=== PATIENT | male | born 1985 | race Caucasian/White ===

== ENCOUNTER 2016-10-26 16:12 | Inpatient (IN) | payer MEDICAID ==
[~2016-10-26] VITALS: Ht 185.4 cm; Wt 62.4 kg
[2016-10-26] MEDS ORDERED: ONDANSETRON HCL/PF - ER 4 MG/2 ML VIAL IV ONE ×2 (16:30→20:00)
[2016-10-26] MEDS ORDERED: ACTIVATED CHARCOAL 25 GM/120 ML TUBE PO ONE (16:30)
[2016-10-26 16:36] LABS: BASOPHILS % (AUTO) 0.4 % (0.0-2.0); EOSINOPHILS % (AUTO) 0.2 % (0.0-6.0); HEMATOCRIT 49 % (39-51); HEMOGLOBIN 15.7 g/dL (13.5-17.5); LYMPHOCYTES # (AUTO) 0.7 /CMM (0.8-4.8); LYMPHOCYTES % (AUTO) 10.4 % (20.0-44.0); MEAN CORPUSCULAR HEMOGLOBIN 30 PG (26.0-33.0); MEAN CORPUSCULAR HGB CONC 32 g/dl (31.0-36.0); MEAN CORPUSCULAR VOLUME 92 fL (80-96); MONOCYTES # (AUTO) 0.6 /CMM (0.1-1.30); MONOCYTES % (AUTO) 8.2 % (2.0-12.0); NEUTROPHILS # (AUTO) 5.5 /CMM (1.8-8.9); NEUTROPHILS % (AUTO) 80.8 % (43.0-81.0); PLATELET COUNT (AUTO) 159 /CMM (150-450); RDW COEFFICIENT OF VARIATION 12.1 (11.5-15.0); RED BLOOD CELL COUNT(AUTO) 5.29 MIL/uL (4.5-6.0); WHITE BLOOD COUNT (AUTO) 6.8 K/uL (4.3-11.0)
[2016-10-26] MEDS ORDERED: ONDANSETRON HCL/PF 4 MG/2 ML VIAL ONE ×2 (16:44→19:36)
[2016-10-26] MEDS ORDERED: ACTIVATED CHARCOAL 25 GM/120 ML TUBE ONE (16:44)
[2016-10-26 16:48] LABS: CARBON DIOXIDE 29 mmol/L (21-32); CHLORIDE 104 mmol/L (98-107); CREATININE 1.1 mg/dL (0.6-1.3); GFR 78 mL/min (>60); POTASSIUM 3.8 mmol/L (3.5-5.1); SODIUM SERUM 141 mmol/L (136-145); UREA NITROGEN, BLOOD 14 mg/dL (7-18)
[2016-10-26 16:57] LABS: ACETAMINOPHEN 0 ug/ml (10-30); ALANINE AMINOTRANSFERASE 15 U/L (12-78); ALBUMIN 4.4 g/dL (3.4-5.0); ALCOHOL, BLOOD < 3 mg/dL (0-0); ALKALINE PHOSPHATASE 56 U/L (46-116); ASPARTATE AMINOTRANSFERASE 12 U/L (15-37); BILIRUBIN,DIRECT 0.2 mg/dL (0.0-0.2); BILIRUBIN,TOTAL 0.7 mg/dL (0.2-1.0); GLUCOSE 125 mg/dL (74-106); SALICYLATE 0.4 mg/dL (2.8-20.0); TOTAL PROTEIN, SERUM 7.5 g/dL (6.4-8.2)
[2016-10-26] MEDS ORDERED: DIAZEPAM 5 MG/ML 2 ML DISP.SYRIN IV ONE ×2 (17:30→20:00)
[2016-10-26] MEDS ORDERED: DIAZEPAM 5 MG/ML 2 ML DISP.SYRIN ONE ×2 (17:53→19:54)
[2016-10-26 19:46] LABS: APPEARANCE,URINE Clear (CLEAR); BILIRUBIN,URINE Negative (NEGATIVE); BLOOD, URINE Trace-intact Ery/uL (NEGATIVE); COLOR,URINE Yellow (YELLOW); KETONES,URINE 80 (NEGATIVE); LEUKOCYTE ESTERASE ,URINE Negative (NEGATIVE); NITRITE, URINE Negative (NEGATIVE); PH,URINE 6.5 (5.0-8.0); PROTEIN,URINE 30 mg/dl (NEGATIVE); UGLUCOSE Negative (NEGATIVE); UROBILINOGEN,URINE 0.2 EU/dL (0.2)
[2016-10-26 19:52] LABS: PHENCYCLIDINE SCREEN,URINE NEGATIVE (NEGATIVE)
[2016-10-26 19:53] LABS: CANNABINOID, URINE POSITIVE (NEGATIVE)
[2016-10-26 20:31] LABS: ADD URINE CULTURE NO; BACTERIA,URINE Few /HPF (None Seen); RBC,URINE 0-2 /HPF (0-2); SQUAMOUS EPITHELIAL CELL,UR Rare /HPF (None Seen); WBC,URINE 0-2 /HPF (0-3)
[2016-10-26 22:05] VITALS: BP 150/83
[2016-10-26] MEDS ORDERED: LORAZEPAM INJ 2 MG/ML VIAL IV PRN ×2 (23:00)
[2016-10-26] MEDS ORDERED: LORAZEPAM 0.5 MG TABLET PO PRN (23:00)
[2016-10-26] MEDS ORDERED: ACETAMINOPHEN LIQUID 160 MG/5 ML BOTTLE PO PRN (23:00)
[2016-10-27] VITALS: BP 155/90
[2016-10-27 04:00] VITALS: BP 159/99
[2016-10-27] MEDS ORDERED: CLONIDINE HCL 0.1 MG TABLET ONE (05:47)
[2016-10-27] MEDS ORDERED: CLONIDINE HCL 0.1 MG TABLET PO PRN (06:00)
[2016-10-27 06:17] LABS: BASOPHILS % (AUTO) 0.3 % (0.0-2.0); HEMATOCRIT 49 % (39-51); HEMOGLOBIN 16.4 g/dL (13.5-17.5); LYMPHOCYTES % (AUTO) 11.5 % (20.0-44.0); MEAN CORPUSCULAR HEMOGLOBIN 31 PG (26.0-33.0); MEAN CORPUSCULAR HGB CONC 34 g/dl (31.0-36.0); MEAN CORPUSCULAR VOLUME 91 fL (80-96); MONOCYTES # (AUTO) 0.6 /CMM (0.1-1.30); MONOCYTES % (AUTO) 7.1 % (2.0-12.0); NEUTROPHILS # (AUTO) 7.3 /CMM (1.8-8.9); NEUTROPHILS % (AUTO) 81.1 % (43.0-81.0); PLATELET COUNT (AUTO) 177 /CMM (150-450); RED BLOOD CELL COUNT(AUTO) 5.37 MIL/uL (4.5-6.0); WHITE BLOOD COUNT (AUTO) 8.9 K/uL (4.3-11.0)
[2016-10-27 06:41] LABS: ALBUMIN 4.5 g/dL (3.4-5.0); CALCIUM, SERUM 8.8 mg/dL (8.5-10.1); POTASSIUM 4.1 mmol/L (3.5-5.1); TOTAL PROTEIN, SERUM 7.8 g/dL (6.4-8.2)
[2016-10-27] MEDS ORDERED: AMPH10TA4 PO (07:57)
[2016-10-27] MEDS ORDERED: ERGO50003 PO (07:57)
[2016-10-27 08:00] VITALS: BP 137/80
[2016-10-27] MEDS ORDERED: ACETAMINOPHEN 650 MG/20.3 ML UDC PO PRN (08:30)
[2016-10-27] MEDS ORDERED: AMLODIPINE BESYLATE 2.5 MG TABLET PO SCH (09:00)
[2016-10-27 09:25] VITALS: BP 137/80
== END 2016-10-27 15:40 | disposition home or self-care (01) | DRG 812 ==
LOC: ER 16:15 → TELE 20:56 → MED 10-27 09:08
PROVIDERS: ADMIT Internal Medicine; ATTEND Internal Medicine
DX: T43.622A Poisoning by amphetamines, intentional self-harm, initial encounter (principal); I10 Essential (primary) hypertension; Y92.009 Unspecified place in unspecified non-institutional (private) residence as the place of occurrence of the external cause; F17.210 Nicotine dependence, cigarettes, uncomplicated; F90.9 Attention-deficit hyperactivity disorder, unspecified type; Y92.9 Unspecified place or not applicable
CPT/HCPCS: 36415; 80048-TC; 80053-TC; 80076-TC; 80305; 81000-TC; 82550-TC; 85025-TC; 87081-TC; A4606; G0480; G6039-TC; J2405; J3360; Z7610

== ENCOUNTER 2017-01-02 21:21 | Emergency (ER) | payer MEDICAID ==
[~2017-01-02] VITALS: Ht 185.4 cm; Wt 74.8 kg
[~2017-01-02 21:21] MED LIST: AMPH10TA4 PO; ERGO50003 PO
[2017-01-02 21:36] VITALS: BP 132/79
== END 2017-01-02 22:39 | disposition home or self-care (01) ==
LOC: ER 21:26
DX: R07.89 Other chest pain (principal); F90.9 Attention-deficit hyperactivity disorder, unspecified type
CPT/HCPCS: 71010-TC; A4606; Z7610

== ENCOUNTER 2017-10-06 22:46 | Inpatient (IN) | payer MEDICAID ==
[~2017-10-06] VITALS: Ht 185.4 cm; Wt 86.8 kg
[~2017-10-06 22:46] MED LIST changes: +ERGO500014 PO; -ERGO50003 PO
--- NOTE | 2017-10-06 22:52 | NUR ---
PT C/O PAIN WHEN BREATHING ON RIGHT SIDE X 2 WEEKS NO SOB
[2017-10-06] MEDS ORDERED: KETOROLAC TROMETHAMINE INJ 30 MG/ML VIAL ONE (23:05)
--- NOTE | 2017-10-06 23:09 | NUR ---
EKG IN PROGRESS
--- NOTE | 2017-10-06 23:13 | NUR ---
RAC #20 IV ACCESS BLOOD SAMPLE COLLECTED SENT TO LAB
--- NOTE | 2017-10-06 23:25 | NUR ---
GAVE REPORT TO LUIZA FOR BRYON
[2017-10-06 23:26] LABS: BASOPHILS % (AUTO) 0.3 % (0.0-2.0); EOSINOPHILS % (AUTO) 0.2 % (0.0-6.0); HEMATOCRIT 45 % (39-51); HEMOGLOBIN 15.4 g/dL (13.5-17.5); LYMPHOCYTES # (AUTO) 1.1 /CMM (0.8-4.8); MEAN CORPUSCULAR HGB CONC 34 g/dl (31.0-36.0); MEAN CORPUSCULAR VOLUME 91 fL (80-96); MONOCYTES # (AUTO) 0.6 /CMM (0.1-1.30); MONOCYTES % (AUTO) 7.3 % (2.0-12.0); NEUTROPHILS # (AUTO) 5.9 /CMM (1.8-8.9); NEUTROPHILS % (AUTO) 77.2 % (43.0-81.0); PLATELET COUNT (AUTO) 206 /CMM (150-450); RDW COEFFICIENT OF VARIATION 12.2 (11.5-15.0); RED BLOOD CELL COUNT(AUTO) 4.97 MIL/uL (4.5-6.0); WHITE BLOOD COUNT (AUTO) 7.6 K/uL (4.3-11.0)
--- NOTE | 2017-10-06 23:28 | NUR ---
REPORT RECEIVED FROM ROS CARMONA FOR BRYON.
[2017-10-06] MEDS ORDERED: IV NS 0.9% 500 ML BAG IV ONE (23:30)
[2017-10-06] MEDS ORDERED: KETOROLAC TROMETHAMINE INJ 30 MG/ML VIAL IV ONE (23:30)
[2017-10-06 23:42] LABS: D-DIMER 1.08 mg/L(FEU (0.17-0.50); INR 1.02 (0.87-1.13)
[2017-10-06 23:43] LABS: ALANINE AMINOTRANSFERASE 20 U/L (12-78); ALKALINE PHOSPHATASE 74 U/L (46-116); ASPARTATE AMINOTRANSFERASE 10 U/L (15-37); BILIRUBIN,DIRECT 0.1 mg/dL (0.0-0.2); BILIRUBIN,TOTAL 0.7 mg/dL (0.2-1.0); CALCIUM, SERUM 9.1 mg/dL (8.5-10.1); CARBON DIOXIDE 31 mmol/L (21-32); CHLORIDE 100 mmol/L (98-107); CREATININE 1.2 mg/dL (0.6-1.3); GLUCOSE 171 mg/dL (74-106); POTASSIUM 3.2 mmol/L (3.5-5.1); SODIUM SERUM 138 mmol/L (136-145); TOTAL PROTEIN, SERUM 7.8 g/dL (6.4-8.2); UREA NITROGEN, BLOOD 12 mg/dL (7-18)
[2017-10-06 23:45] LABS: TROPONIN I < 0.017 ng/mL (0.00-0.056)
--- NOTE | 2017-10-07 00:01 | NUR ---
PT TO CT VIA WC. VSS.
[2017-10-07] MEDS ORDERED: IV NS 0.9% 250 ML IV ONE (00:15)
[2017-10-07] MEDS ORDERED: IOHEXOL-350 100 ML VIAL IV ONE (00:15)
[2017-10-07] MEDS ORDERED: CT SWABBABLE VALVE TRANS SET 1 EA INFUS.SET MC ONE (00:15)
--- NOTE | 2017-10-07 00:36 | NUR ---
PT BACK FROM CT.
--- NOTE | 2017-10-07 01:40 | NUR ---
MD AT BEDSIDE SPEAKING WITH PATIENT.
[2017-10-07] MEDS ORDERED: ENOXAPARIN SODIUM 80 MG/0.8 ML DISP.SYRIN SQ ONE (01:49)
[2017-10-07] MEDS ORDERED: ENOXAPARIN SODIUM 30 MG/0.3 ML DISP.SYRIN SQ ONE (02:00)
[2017-10-07] MEDS ORDERED: HYDROMORPHONE 1 MG/1 ML DISP.SYRIN IM ONE (03:00)
[2017-10-07] MEDS ORDERED: ONDANSETRON 4 MG TAB.RAPDIS SL ONE (03:00)
--- NOTE | 2017-10-07 03:00 | NUR ---
REPORT RECEIVED FROM LUIZA MUNOZ RN FOR PATIENT TO BE TRANSFERRED TO TELEMETRY FLOOR.
--- NOTE | 2017-10-07 03:01 | NUR ---
PATIENT TBA 312-2.
--- NOTE | 2017-10-07 03:01 | NUR ---
REPORT GIVEN TO ROS SIFUENTES ON 3W FOR BRYON.
--- NOTE | 2017-10-07 03:21 | NUR ---
PT TRANSPORTED TO [facility] 312-2 VIA STRETCHER ON CONTROL CLERK SUBASSEMBLY WITH RN PER ACLS PROTOCOL. VSS.
[2017-10-07] MEDS ORDERED: ACETAMINOPHEN 325 MG TABLET PO PRN (03:30)
[2017-10-07] MEDS ORDERED: HYDROCODONE/APAP 5/325MG 1 EACH TABLET PO PRN (03:30)
--- NOTE | 2017-10-07 03:44 | NUR ---
MILL OPERATOR HELPER OPENING NOTE PATIENT WAS BROUGHT TO THE UNIT ON A GURNEY, ABLE TO AMBULATE TO BED INDEPENDENTLY, PATIENT IS ALERT ORIENTED X4, ABLE TO VERBALIZE NEEDS. IN STABLE CONDITION. RESPIRATIONS EVEN AND UNLABORED,NO APPARENT ACUTE DISTRESS OR DISCOMFORT NOTED, DENIES SOB. ON ROOM AIR TOLERATES WELL. PATIENT COMPLAINS OF RIGHT SIDED CHEST PAIN 2-3/10. TOLERATES PAIN AT THIS LEVEL, REFUSES PAIN MEDICATION AT THIS TIME. INITIAL PHYSICAL ASSESSMENT PERFORMED, SKIN IS INTACT. RIGHT AC IV 20G, SL, PATENT AND INTACT. VITAL SIGNS: BP: 143/85, HR: 74, O2 SAT: 100%, RESP: 20, T: 98.4. ALL THE BELONGINGS ARE CHECKED AND ACCOUNTED FOR. SAFETY MEASURES IN PLACE, BED IN LOW LOCKED POSITION, SIDE RAILS UP X2, CALL LIGHT WITHIN EASY REACH. WILL CARRY OUT ADMISSION ORDERS AND CONTINUE TO MONITOR.
[2017-10-07 04:04] VITALS: BP 143/85
[2017-10-07 04:54] VITALS: BP 143/85
--- NOTE | 2017-10-07 06:34 | NUR ---
CREDIT FRONT OFFICE DEVELOPER CLOSING NOTE PATIENT SLEEPING IN BED, EASILY AROUSED WITH VERBAL STIMULI. ORIENTED X4. ON ROOM AIR, TOLERATING WELL. O2 SAT >93%. IN NO APPARENT DISTRESS OR DISCOMFORT AT THIS TIME. RESPIRATIONS EVEN AND UNLABORED. PATIENT ABLE TO VERBALIZE NEEDS. RIGHT AC IV 20G SL, PATENT AND INTACT. PATIENT ON TELE MONITORING WITH SR AND HR OF 63. PATIENT KEPT CLEAN AND COMFORTABLE, ALL NEEDS ATTENDED. SAFETY MEASURES IN PLACE, BED IN LOW LOCKED POSITION, SIDE RAILS UP X2, CALL LIGHT WITHIN EASY REACH. WILL ENDORSE TO AM NURSE FOR BRYON.
--- NOTE | 2017-10-07 07:40 | NUR ---
WASTE WATER WORKER OPENING NOTE PATIENT IS ALERT AND ORIENTED x4. NO PAIN AT THIS TIME. NO SOB OR DISTRESS. CALL LIGHT WITHIN REACH. SAFETY MEASURES IMPLEMENTED. ABLE TO COMMUNICATE NEEDS. IV INTACT AND PATENT NO REDNESS OR SWELLING NOTED. LABS PENDING AT THIS TIME. TELE MONITOR- SR 69. WILL CONTINUE TO MONITOR THROUGHOUT SHIFT
[2017-10-07 08:00] VITALS: BP 132/74
[2017-10-07 08:15] LABS: BASOPHILS % (AUTO) 0.2 % (0.0-2.0); EOSINOPHILS % (AUTO) 0.3 % (0.0-6.0); HEMATOCRIT 41 % (39-51); HEMOGLOBIN 14.1 g/dL (13.5-17.5); LYMPHOCYTES # (AUTO) 1.2 /CMM (0.8-4.8); LYMPHOCYTES % (AUTO) 21.2 % (20.0-44.0); MEAN CORPUSCULAR HGB CONC 35 g/dl (31.0-36.0); MEAN CORPUSCULAR VOLUME 91 fL (80-96); MONOCYTES # (AUTO) 0.6 /CMM (0.1-1.30); MONOCYTES % (AUTO) 10.9 % (2.0-12.0); NEUTROPHILS # (AUTO) 3.9 /CMM (1.8-8.9); NEUTROPHILS % (AUTO) 67.4 % (43.0-81.0); PLATELET COUNT (AUTO) 180 /CMM (150-450); RDW COEFFICIENT OF VARIATION 12.2 (11.5-15.0); RED BLOOD CELL COUNT(AUTO) 4.45 MIL/uL (4.5-6.0); WHITE BLOOD COUNT (AUTO) 5.8 K/uL (4.3-11.0)
[2017-10-07 08:35] LABS: ALBUMIN 3.2 g/dL (3.4-5.0); BILIRUBIN,TOTAL 0.6 mg/dL (0.2-1.0); CALCIUM, SERUM 8.3 mg/dL (8.5-10.1); CREATININE 1.1 mg/dL (0.6-1.3); POTASSIUM 3.5 mmol/L (3.5-5.1); TOTAL PROTEIN, SERUM 6.5 g/dL (6.4-8.2)
[2017-10-07 08:42] LABS: THYROID STIMULATING HORMONE 4.596 uIU/mL (0.358-3.74)
[2017-10-07] MEDS ORDERED: APIXABAN 5 MG TABLET PO SCH (09:00)
[2017-10-07] MEDS ORDERED: RIVAROXABAN 15 MG TABLET PO SCH (10:00)
[2017-10-07] MEDS ORDERED: Rivaroxaban PO (10:20)
[2017-10-07] MEDS ORDERED: AMLO2.5T3 PO (10:20)
[2017-10-07] MEDS ORDERED: AMLODIPINE BESYLATE 2.5 MG TABLET PO SCH (10:30)
[2017-10-07 10:46] VITALS: BP 132/74
--- NOTE | 2017-10-07 15:54 | NUR ---
RN TRANSPORT NOTE PATIENT SENT HOME IN STABLE CONDITION, ALERT AND ORIENTED X4. NO PAIN, SOB OR DISTRESS NOTED. ALL DUE MEDICATIONS GIVEN ORDERED. ALL NURSING CARE NEEDS ATTENDED TO NEEDED. ALL BELONGINGS WITH PATIENT UPON DISCHARGE. ALL DISCHARGE INSTRUCTIONS GIVEN AT BEDSIDE, ALL INSTRUCTIONS REPEATED BACK BY PATIENT. PRESCRIPTION GIVEN TO PATIENT, MEDICATION EDUCATION GIVEN. LEFT VIA PRIVATE CAR WITH FAMILY MEMBER. IV REMOVED, SKIN INTACT.
[2017-10-08 09:12] LABS: C-REACTIVE PROTEIN, QUANT 15.3 mg/L (0.0-4.9)
== END 2017-10-07 16:00 | disposition home or self-care (01) | DRG 134 ==
LOC: ER 22:47 → TELE 10-07 03:02 → MED 10-07 09:06
PROVIDERS: ADMIT Internal Medicine; ATTEND Internal Medicine
DX: I26.99 Other pulmonary embolism without acute cor pulmonale (principal); I10 Essential (primary) hypertension; Z87.891 Personal history of nicotine dependence; F90.9 Attention-deficit hyperactivity disorder, unspecified type
CPT/HCPCS: 36415; 71045-TC; 80048-TC; 80053-TC; 80076-TC; 83690-TC; 84443-TC; 84484-TC; 85025-TC; 85378-TC; 85730-TC; 86140; 87081-TC; 93307-TC; 93970-TC; A4606; J1650; J1885; J7040; J7050; Q9967; Z7610

== ENCOUNTER 2018-10-29 22:24 | Emergency (ER) | payer SELFPAY ==
[~2018-10-29] VITALS: Ht 185.4 cm; Wt 68.0 kg
[~2018-10-29 22:24] MED LIST changes: +AMLO2.5T4 PO; -AMPH10TA4 PO; -ERGO500014 PO; +Rivaroxaban PO
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
--- NOTE | 2018-10-29 22:45 | NUR ---
PIV 20G INSERTED ON LAC . BLOOD WAS DRAWN. AND HANDED TO THE EGG CRATER.
--- NOTE | 2018-10-29 22:50 | NUR ---
ECG TECH AT THE BED SIDE
[2018-10-29 23:01] LABS: BASOPHILS # (AUTO) 0.1 /CMM (0.0-0.2); EOSINOPHILS % (AUTO) 0.6 % (0.0-6.0); HEMATOCRIT 46 % (39-51); HEMOGLOBIN 15.5 g/dL (13.5-17.5); LYMPHOCYTES # (AUTO) 1.8 /CMM (0.8-4.8); LYMPHOCYTES % (AUTO) 32.3 % (20.0-44.0); MEAN CORPUSCULAR HGB CONC 34 g/dl (31.0-36.0); MEAN CORPUSCULAR VOLUME 92 fL (80-96); MONOCYTES # (AUTO) 0.5 /CMM (0.1-1.30); MONOCYTES % (AUTO) 9.6 % (2.0-12.0); NEUTROPHILS # (AUTO) 3.2 /CMM (1.8-8.9); NEUTROPHILS % (AUTO) 55.5 % (43.0-81.0); PLATELET COUNT (AUTO) 245 /CMM (150-450); RED BLOOD CELL COUNT(AUTO) 5.04 MIL/uL (4.5-6.0); WHITE BLOOD COUNT (AUTO) 5.7 K/uL (4.3-11.0)
[2018-10-29 23:09] LABS: CARBON DIOXIDE 36 mmol/L (21-32); CHLORIDE 105 mmol/L (98-107); CREATININE 1.1 mg/dL (0.6-1.3); GLUCOSE 81 mg/dL (74-106); POTASSIUM 3.5 mmol/L (3.5-5.1); SODIUM SERUM 144 mmol/L (136-145); UREA NITROGEN, BLOOD 11 mg/dL (7-18)
[2018-10-29] MEDS ORDERED: CT SWABBABLE VALVE TRANS SET 1 EA INFUS.SET MC ONE (23:20)
[2018-10-29] MEDS ORDERED: IOHEXOL-350 100 ML VIAL IV ONE (23:20)
[2018-10-29] MEDS ORDERED: IV NS 0.9% 250 ML IV ONE (23:20)
--- NOTE | 2018-10-29 23:25 | NUR ---
PICKED UP FOR CT
--- NOTE | 2018-10-29 23:50 | NUR ---
BACK FROM CT
[2018-10-29 23:54] VITALS: BP 137/82
--- NOTE | 2018-10-30 01:15 | NUR ---
Patient discharged to home in stable condition. Written and verbal after care instructions and prescription given. Patient verbalizes understanding of instruction.
== END 2018-10-30 01:40 | disposition home or self-care (01) ==
LOC: ER 22:24
DX: J40 Bronchitis, not specified as acute or chronic (principal); F90.9 Attention-deficit hyperactivity disorder, unspecified type; Z86.711 Personal history of pulmonary embolism; Z98.890 Other specified postprocedural states; Z79.899 Other long term (current) drug therapy
CPT/HCPCS: 36415; 71045; 71275; 80048; 84484; 85025; 85378; 93005; 99284; J7050; Q9967

== ENCOUNTER 2019-01-15 13:28 | Emergency (ER) | payer SELFPAY ==
[~2019-01-15] VITALS: Ht 185.4 cm; Wt 81.6 kg
--- NOTE | 2019-01-15 14:30 | NUR ---
RIGHT FLANK PAIN X 1 HR ASSOCIATED WITH NAUSEA. PT AAOX4, VSS, RR EVEN & UNLABORED. DENIES CP, SOB, DIZZINESS, WEAKNESS AT THIS TIME. PT SEEN & EVAL'D BY BENITO MAHER & WILL CONT TO MONITOR.
[2019-01-15] MEDS ORDERED: ONDANSETRON HCL/PF 4 MG/2 ML VIAL ONE (14:58)
[2019-01-15 14:59] LABS: BASOPHILS % (AUTO) 0.2 % (0.0-2.0); EOSINOPHILS % (AUTO) 0.5 % (0.0-6.0); HEMATOCRIT 44 % (39-51); HEMOGLOBIN 14.8 g/dL (13.5-17.5); LYMPHOCYTES % (AUTO) 20.3 % (20.0-44.0); MEAN CORPUSCULAR HGB CONC 34 g/dl (31.0-36.0); MEAN CORPUSCULAR VOLUME 91 fL (80-96); MONOCYTES # (AUTO) 0.4 /CMM (0.1-1.30); MONOCYTES % (AUTO) 7.6 % (2.0-12.0); NEUTROPHILS # (AUTO) 3.6 /CMM (1.8-8.9); NEUTROPHILS % (AUTO) 71.4 % (43.0-81.0); PLATELET COUNT (AUTO) 163 /CMM (150-450)
[2019-01-15] MEDS ORDERED: IV NS 0.9% 1,000 ML BAG IV ONE (15:00)
[2019-01-15] MEDS ORDERED: ONDANSETRON HCL/PF 4 MG/2 ML VIAL IVP ONE (15:00)
[2019-01-15 15:07] LABS: CALCIUM, SERUM 8.7 mg/dL (8.5-10.1); CREATININE 1.1 mg/dL (0.6-1.3); POTASSIUM 4.4 mmol/L (3.5-5.1)
--- NOTE | 2019-01-15 15:10 | NUR ---
MEDICATED ORDERED, PT TK WELL. LOOP SEWER AT BS FOR EVAL.
[2019-01-15 15:11] LABS: ALBUMIN 3.8 g/dL (3.4-5.0); BILIRUBIN,DIRECT 0.1 mg/dL (0.0-0.2); BILIRUBIN,TOTAL 0.9 mg/dL (0.2-1.0); TOTAL PROTEIN, SERUM 7.2 g/dL (6.4-8.2)
--- NOTE | 2019-01-15 15:12 | NUR ---
CALLED LINE SERVICE SUPERVISOR DEPT, STATES IN A MEETING WILL CALL BACK
[2019-01-15] MEDS ORDERED: ENOXAPARIN SODIUM 80 MG/0.8 ML DISP.SYRIN SQ SCH (15:30)
[2019-01-15] MEDS ORDERED: ENOXAPARIN SODIUM 80 MG/0.8 ML DISP.SYRIN SQ ONE (15:33)
[2019-01-15 15:59] LABS: APPEARANCE,URINE Cloudy (CLEAR); BILIRUBIN,URINE Negative (NEGATIVE); BLOOD, URINE Large Ery/uL (NEGATIVE); COLOR,URINE Red (YELLOW); KETONES,URINE Negative (NEGATIVE); LEUKOCYTE ESTERASE ,URINE Negative (NEGATIVE); NITRITE, URINE Negative (NEGATIVE); PH,URINE 8.5 (5.0-8.0); PROTEIN,URINE 30 mg/dl (NEGATIVE); UGLUCOSE Negative (NEGATIVE)
[2019-01-15 16:03] LABS: BACTERIA,URINE Few /HPF (None Seen); RBC,URINE TOO NUMEROUS TO COUN /HPF (0-2); SQUAMOUS EPITHELIAL CELL,UR None Seen /HPF (None Seen); WBC,URINE 0-2 /HPF (0-3)
[2019-01-15] MEDS ORDERED: TAMSULOSIN 0.4 MG CAP.SR.24H ONE (16:51)
[2019-01-15] MEDS ORDERED: TAMSULOSIN 0.4 MG CAP.SR.24H PO ONE (17:00)
--- NOTE | 2019-01-15 17:10 | NUR ---
The patient was seen by the case management; the patient was referred to a [facility] or [facility]; the medical case manager-ROS Marin spoke to the patient lengthily about the need to follow up to a [facility] in order for his prescriptions to be filled-since the patient is uninsured
--- NOTE | 2019-01-15 17:11 | NUR ---
The patient will be discharge home, discharge teachings as well as resource for the [facility] were offered to the patient, also prescription-anticoagulants were provided to the patient. The patient was instructed again, to follow-up in [facility] first thing in the morning, in order for his prescription to be filled or for him to be seen by the ER physician. The patient was instructed to follow-up in [facility], since his insurance has already [id number]. The patient verbalized understanding of care.
--- NOTE | 2019-01-15 17:13 | NUR ---
The patient was instructed to follow-up in [place], in order for him to obtain he his primary care physician[place] [facility] [place] was also referred to the [facility], for outpatient urology-nephrolithiasis Case discussed extensively to the patient by his ED provider-BENITO Leonard
[2019-01-15 17:14] VITALS: BP 142/70
== END 2019-01-15 17:15 | disposition home or self-care (01) ==
LOC: ER 13:28
DX: N13.2 Hydronephrosis with renal and ureteral calculous obstruction (principal); I26.99 Other pulmonary embolism without acute cor pulmonale; F90.9 Attention-deficit hyperactivity disorder, unspecified type; Z85.820 Personal history of malignant melanoma of skin; Z98.890 Other specified postprocedural states; Z79.899 Other long term (current) drug therapy; Z79.01 Long term (current) use of anticoagulants
CPT/HCPCS: 36415; 71045; 76770; 80048; 80076; 81001; 85025; 96372; 96374; 99284; J1650; J2405; J7030 ×2; 81000-TC

== ENCOUNTER 2019-06-05 13:45 | Emergency (ER) | payer MEDICAID ==
[~2019-06-05] VITALS: Ht 185.4 cm; Wt 83.5 kg
--- NOTE | 2019-06-05 14:08 | NUR ---
PT BIBS. AAOX4. QMBULATORY. PT C/O GENERALIZED WEAKNESS X 3 DAYS. ALSO, ITCHING ON BOTH HANDS X1 MONTH. RR EVEN AND UNLABORED. NO NEURO DEFICIT. NO ACUTE DISTRESS NOTED. MD AT BEDSIDE.
--- NOTE | 2019-06-05 14:28 | NUR ---
URINE COLLECTED AND SENT TO LAB
--- NOTE | 2019-06-05 14:33 | NUR ---
LEACH RUNNER AT BEDSIDE FOR LAB COLLECTION
[2019-06-05 14:41] LABS: BASOPHILS % (AUTO) 0.4 % (0.0-2.0); EOSINOPHILS % (AUTO) 0.3 % (0.0-6.0); HEMATOCRIT 47 % (39-51); HEMOGLOBIN 15.7 g/dL (13.5-17.5); LYMPHOCYTES % (AUTO) 16.6 % (20.0-44.0); MEAN CORPUSCULAR HGB CONC 34 g/dl (31.0-36.0); MEAN CORPUSCULAR VOLUME 92 fL (80-96); MONOCYTES # (AUTO) 0.4 /CMM (0.1-1.30); MONOCYTES % (AUTO) 6.7 % (2.0-12.0); NEUTROPHILS # (AUTO) 4.4 /CMM (1.8-8.9); PLATELET COUNT (AUTO) 185 /CMM (150-450); RED BLOOD CELL COUNT(AUTO) 5.09 MIL/uL (4.5-6.0); WHITE BLOOD COUNT (AUTO) 5.8 K/uL (4.3-11.0)
[2019-06-05 14:46] LABS: BILIRUBIN,URINE Negative (NEGATIVE); BLOOD, URINE Negative Ery/uL (NEGATIVE); COLOR,URINE Yellow (YELLOW); KETONES,URINE 40 (NEGATIVE); LEUKOCYTE ESTERASE ,URINE Negative (NEGATIVE); NITRITE, URINE Negative (NEGATIVE); PH,URINE 7.5 (5.0-8.0); PROTEIN,URINE Negative (NEGATIVE); UGLUCOSE Negative (NEGATIVE)
[2019-06-05 14:49] LABS: CALCIUM, SERUM 9.1 mg/dL (8.5-10.1); CREATININE 1.1 mg/dL (0.6-1.3); POTASSIUM 3.8 mmol/L (3.5-5.1)
[2019-06-05 14:50] LABS: APPEARANCE,URINE Hazy (CLEAR)
[2019-06-05 14:52] LABS: BACTERIA,URINE None seen /HPF (None Seen); SQUAMOUS EPITHELIAL CELL,UR Few /HPF (None Seen); WBC,URINE 0-2 /HPF (0-3)
[2019-06-05 14:54] LABS: ALBUMIN 4.2 g/dL (3.4-5.0); BILIRUBIN,DIRECT 0.2 mg/dL (0.0-0.2)
--- NOTE | 2019-06-05 15:45 | NUR ---
US AT BEDSIDE
--- NOTE | 2019-06-05 16:30 | NUR ---
Patient is resting comfortably in bed. Easily aroused. VSS.
--- NOTE | 2019-06-05 16:59 | NUR ---
Patient discharged to home in stable condition. Written and verbal after care instructions given. Patient verbalizes understanding of instruction. PT ambulatory with a steady gait.
[2019-06-05 17:01] VITALS: BP 148/89
== END 2019-06-05 17:02 | disposition home or self-care (01) ==
LOC: ER 13:46
DX: I82.403 Acute embolism and thrombosis of unspecified deep veins of lower extremity, bilateral (principal); N48.1 Balanitis; L29.9 Pruritus, unspecified; K62.5 Hemorrhage of anus and rectum; F90.9 Attention-deficit hyperactivity disorder, unspecified type; Z86.711 Personal history of pulmonary embolism; Z85.820 Personal history of malignant melanoma of skin; Z98.890 Other specified postprocedural states; Z79.899 Other long term (current) drug therapy
CPT/HCPCS: 36415; 80048-TC; 80076-TC; 81000-TC; 84443-TC; 85025-TC; 87086-TC; 87491; 87591; 93970-TC

== ENCOUNTER 2019-12-03 19:57 | Emergency (ER) | payer MEDICAID ==
[~2019-12-03] VITALS: Ht 185.4 cm; Wt 78.9 kg
--- NOTE | 2019-12-03 20:39 | NUR ---
BIBS FROM HOME TO ER BED 7. AAOX4. NOT IN RESP DISTRESS, SATTING @ 99% ON RA, BREATHING EVEN AND UNLABORED. AMBULATORY. CAME IN FOR MID LEFT CHEST PAIN X ABOUT A WEEK. INTERMITENT AND PULSATING IN SENSATION. PT REPORT THAT PAIN IS RADIATING TO NECK. RATES PAIN 6/10. PT ALSO C/O L HAND 5TH DIGIT SWELLING AND R HAND 5TH DIGIT NUMBNESS. PT STATES THAT HE HAD HISTORY OF PULMONARY EMBOLISM AND TAKING XARELTO. PT STATES THAT IS FEELS THAT SAME WHEN HE HAB THE P.E. MD WAS MADE AWARE. ORDERS RECEIVED, NOTED AND CARRIED OUT
--- NOTE | 2019-12-03 21:09 | NUR ---
IV LINE OBTAINED ON L AC 18G. BLOOD DRAWN AND GIVEN TO PATIENT RELATIONS MANAGER AT BEDSIDE
[2019-12-03 21:11] LABS: BASOPHILS % (AUTO) 0.3 % (0.0-2.0); EOSINOPHILS % (AUTO) 0.2 % (0.0-6.0); HEMATOCRIT 44 % (39-51); HEMOGLOBIN 14.7 g/dL (13.5-17.5); LYMPHOCYTES # (AUTO) 1.4 /CMM (0.8-4.8); LYMPHOCYTES % (AUTO) 20.9 % (20.0-44.0); MEAN CORPUSCULAR HGB CONC 34 g/dl (31.0-36.0); MEAN CORPUSCULAR VOLUME 91 fL (80-96); MONOCYTES # (AUTO) 0.5 /CMM (0.1-1.30); NEUTROPHILS # (AUTO) 4.8 /CMM (1.8-8.9); NEUTROPHILS % (AUTO) 71.6 % (43.0-81.0); PLATELET COUNT (AUTO) 188 /CMM (150-450); RED BLOOD CELL COUNT(AUTO) 4.81 MIL/uL (4.5-6.0); WHITE BLOOD COUNT (AUTO) 6.8 K/uL (4.3-11.0)
[2019-12-03 21:20] LABS: CALCIUM, SERUM 8.7 mg/dL (8.5-10.1); CARBON DIOXIDE 25 mmol/L (21-32); CHLORIDE 103 mmol/L (98-107); GLUCOSE 101 mg/dL (74-106); POTASSIUM 3.4 mmol/L (3.5-5.1); SODIUM SERUM 139 mmol/L (136-145); UREA NITROGEN, BLOOD 12 mg/dL (7-18)
[2019-12-03 21:32] LABS: ALANINE AMINOTRANSFERASE 20 U/L (12-78); ALBUMIN 4.1 g/dL (3.4-5.0); ALKALINE PHOSPHATASE 58 U/L (46-116); ASPARTATE AMINOTRANSFERASE 12 U/L (15-37); BILIRUBIN,DIRECT 0.2 mg/dL (0.0-0.2); BILIRUBIN,TOTAL 0.7 mg/dL (0.2-1.0); TOTAL PROTEIN, SERUM 7.4 g/dL (6.4-8.2)
[2019-12-03 21:39] LABS: D-DIMER 0.19 mg/L(FEU (0.17-0.50)
[2019-12-03] MEDS ORDERED: IV NS 0.9% 250 ML IV ONE (22:13)
[2019-12-03] MEDS ORDERED: IOHEXOL-350 100 ML VIAL IV ONE (22:13)
--- NOTE | 2019-12-03 22:39 | NUR ---
PT BACK FROM CT
--- NOTE | 2019-12-03 22:50 | NUR ---
US AT BEDSIDE
--- NOTE | 2019-12-03 23:35 | NUR ---
WAS AT PT BEDSIDE TALKING TO PT
[2019-12-03 23:48] VITALS: BP 135/88
--- NOTE | 2019-12-03 23:48 | NUR ---
Patient discharged to home in stable condition. Written and verbal after care instructions given. Patient verbalizes understanding of instruction.IV removed. Catheter intact and site benign. Pressure and 4x4 applied to site. No bleeding noted. Pt ambulatory with a steady gait
== END 2019-12-03 23:49 | disposition home or self-care (01) ==
LOC: ER 19:57
DX: R07.89 Other chest pain (principal); F90.9 Attention-deficit hyperactivity disorder, unspecified type; Z98.890 Other specified postprocedural states; Z79.899 Other long term (current) drug therapy; Z86.711 Personal history of pulmonary embolism
CPT/HCPCS: 36415; 71045; 71275; 80048; 80076; 84484; 85025; 85378; 85730; 93005; 93970; 99285; J7050; Q9967

== ENCOUNTER 2019-12-26 17:00 | Emergency (ER) | payer MEDICAID ==
[~2019-12-26] VITALS: Ht 185.4 cm; Wt 77.1 kg
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
--- NOTE | 2019-12-26 18:01 | NUR ---
BENITO DOE AT BEDSIDE
--- NOTE | 2019-12-26 18:07 | NUR ---
KENA RAMEY WHEELED OUT PATIENT VIA GURNEY FOR CT SCAN
[2019-12-26 19:15] VITALS: BP 141/99
--- NOTE | 2019-12-26 19:15 | NUR ---
Patient discharged to home in stable condition. Written and verbal after care instructions given. Patient verbalizes understanding of instruction.
== END 2019-12-26 19:16 | disposition home or self-care (01) ==
LOC: ER 17:02
DX: S09.8XXA Other specified injuries of head, initial encounter (principal); M25.562 Pain in left knee; M25.572 Pain in left ankle and joints of left foot; R51 Headache; F90.9 Attention-deficit hyperactivity disorder, unspecified type; Z86.711 Personal history of pulmonary embolism; Z98.890 Other specified postprocedural states; Z79.899 Other long term (current) drug therapy; V49.49XA Driver injured in collision with other motor vehicles in traffic accident, initial encounter; Y93.89 Activity, other specified; Y92.488 Other paved roadways as the place of occurrence of the external cause; Y99.8 Other external cause status
CPT/HCPCS: 70450-TC; 73564-TC; 73610-TC

== ENCOUNTER 2020-06-11 08:57 | Emergency (ER) | payer MEDICAID ==
[~2020-06-11] VITALS: Ht 185.4 cm; Wt 81.2 kg
[2020-06-11] MEDS ORDERED: KETOROLAC TROMETHAMINE INJ 30 MG/ML VIAL IV ONE (09:30)
[2020-06-11] MEDS ORDERED: IV NS 0.9% 1,000 ML BAG IV ONE (09:30)
--- NOTE | 2020-06-11 09:30 | NUR ---
LEFT FLANK PAIN ASSOCIATED WITH URINARY FREQUENCY AND WHITISH URETHRAL DISCHARGE. PATIENT A/OX4, BREATHING EVEN AND UNLABORED, NO SOB NOTED, NEEDS ATTENDED. KEPT COMFORTABLE.
[2020-06-11] MEDS ORDERED: KETOROLAC TROMETHAMINE INJ 30 MG/ML VIAL ONE (09:49)
--- NOTE | 2020-06-11 10:09 | NUR ---
PATIENT REFUSED TORADOL MEDICATION, EXPLAINED RISKS AND BENEFITS STILLR EFUSED.
[2020-06-11 10:14] LABS: BASOPHILS % (AUTO) 0.3 % (0.0-2.0); EOSINOPHILS % (AUTO) 0.2 % (0.0-6.0); HEMATOCRIT 44 % (39-51); HEMOGLOBIN 14.7 g/dL (13.5-17.5); LYMPHOCYTES # (AUTO) 1.2 /CMM (0.8-4.8); LYMPHOCYTES % (AUTO) 23.8 % (20.0-44.0); MEAN CORPUSCULAR HGB CONC 34 g/dl (31.0-36.0); MEAN CORPUSCULAR VOLUME 92 fL (80-96); MONOCYTES # (AUTO) 0.4 /CMM (0.1-1.30); MONOCYTES % (AUTO) 8.6 % (2.0-12.0); NEUTROPHILS # (AUTO) 3.3 /CMM (1.8-8.9); NEUTROPHILS % (AUTO) 67.1 % (43.0-81.0); PLATELET COUNT (AUTO) 188 /CMM (150-450); RED BLOOD CELL COUNT(AUTO) 4.76 MIL/uL (4.5-6.0)
[2020-06-11 10:15] LABS: CALCIUM, SERUM 8.8 mg/dL (8.5-10.1); CREATININE 1.1 mg/dL (0.6-1.3); POTASSIUM 3.6 mmol/L (3.5-5.1)
[2020-06-11 10:20] LABS: BILIRUBIN,URINE NEGATIVE (NEGATIVE); BLOOD, URINE NEGATIVE Ery/uL (NEGATIVE); COLOR,URINE YELLOW (YELLOW); LEUKOCYTE ESTERASE ,URINE NEGATIVE (NEGATIVE); NITRITE, URINE NEGATIVE (NEGATIVE); PROTEIN,URINE NEGATIVE (NEGATIVE); UGLUCOSE NEGATIVE (NEGATIVE)
[2020-06-11 10:21] LABS: ALBUMIN 3.8 g/dL (3.4-5.0); BILIRUBIN,DIRECT 0.2 mg/dL (0.0-0.2); BILIRUBIN,TOTAL 0.5 mg/dL (0.2-1.0); TOTAL PROTEIN, SERUM 7.1 g/dL (6.4-8.2)
[2020-06-11 11:19] LABS: BACTERIA,URINE Few /HPF (None Seen); RBC,URINE 0-2 /HPF (0-2); SQUAMOUS EPITHELIAL CELL,UR Rare /HPF (None Seen); WBC,URINE 0-2 /HPF (0-3)
--- NOTE | 2020-06-11 11:29 | NUR ---
Patient a/ox4, breathing even and unlabored, no sob noted, needs attended. IV removed. Catheter intact and site benign. Pressure and 4x4 applied to site. No bleeding noted.Patient discharged to home in stable condition. Written and verbal after care instructions given. Patient verbalizes understanding of instruction.
[2020-06-11 11:30] VITALS: BP 146/88
== END 2020-06-11 11:32 | disposition home or self-care (01) ==
LOC: ER 08:57
DX: R10.9 Unspecified abdominal pain (principal); Z76.0 Encounter for issue of repeat prescription; Z85.820 Personal history of malignant melanoma of skin; Z87.442 Personal history of urinary calculi; Z86.711 Personal history of pulmonary embolism; Z79.899 Other long term (current) drug therapy
CPT/HCPCS: 36415; 74176; 80048; 80076; 81001; 83690; 85025; 87491; 96360; 99284; J1885; J7030